=== PATIENT | male | born 1940 | race Caucasian/White ===

== ENCOUNTER 2022-03-19 09:27 | Emergency (ER) | payer MEDICARE, OTHER, SELFPAY ==
[2022-03-19] VITALS (30 sets, daily range): BP systolic 135–203; BP diastolic 50–139; PULSE 48–63; RESP 12–22; TEMP 37; O2SAT 93–99; BMI 31.3
--- NOTE | 2022-03-19 09:52 | CRLHL7_ITS ---
For Patients: As a result of the Cures Act, medical imaging exams and procedure reports are released immediately into your electronic medical record. You may view this report before your referring provider. If you have questions, please contact your health care provider. HISTORY: Chest pain. TECHNIQUE: Two views of the chest. COMPARISON: 04/27/2018. FINDINGS: Prior sternotomy. There is no acute lung infiltrate or acute pulmonary edema. No pneumothorax or pleural effusion. Heart size stable. Degenerative changes of the thoracic spine with ankylosis which may relate to diffuse idiopathic skeletal hyperostosis changes. IMPRESSION: No acute disease or significant change. Dictated by Juliano Walsh MD @ 03/19/2022 10:54:17 AM Dictated by: Juliano Walsh MD @ 03/19/2022 10:54:21 (Electronically Signed)
--- NOTE | 2022-03-19 09:59 | ED.GENADULT ---
HPI - General Adult General Chief complaint: Chest Pain Stated complaint: Chest pain/recent blood clots Time Seen by Provider: 03/19/22 09:33 History of Present Illness HPI narrative: 81-year-old male coming in today complaining of chest pain that has been going on for about a week. Chest pain comes and goes. Pain is located substernally and radiates sometimes into between his shoulder blades. Patient states that in 2001 he did have an AR and felt like this. He denies any other systemic symptoms such as fevers, chills, nausea or vomiting. He denies feeling dizzy, diaphoretic or lightheaded. He states that activity does make the discomfort worse however the pain also wakes him up frequently in the middle of the night. When it comes it lasts about 30 minutes. He does believe that rest usually makes it better. 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 He denies any shortness of breath. Patient does have a history of obesity, diabetes, hypertension and coronary artery disease with a CABG x2 vessels. He is on Eliquis daily as well. Related Data Home Medications Medication Instructions Recorded Confirmed apixaban 5 mg tablet (Eliquis) mg 03/19/22 atenolol 25 mg tablet mg 03/19/22 atorvastatin 40 mg tablet mg 03/19/22 ciclopirox 8 % topical solution TOPICAL 03/19/22 glipizide 5 mg tablet mg 03/19/22 insulin aspart U-100 100 unit/mL SUBCUT 03/19/22 (3 mL) subcutaneous pen (Novolog Flexpen U-100 Insulin aspart) insulin glargine 100 unit/mL (3 unit SUBCUT 03/19/22 mL) subcutaneous pen (Lantus Solostar U-100 Insulin) pantoprazole 40 mg tablet,delayed mg PO 03/19/22 release Allergies Allergy/AdvReac Type Severity Reaction Status Date / Time No Known Drug Allergies Allergy Verified 03/19/22 09:38 Review of Systems Status of ROS: Reports: 10 or more systems reviewed and unremarkable except as noted in History and below [facility] Medical History CAD (coronary artery disease) Cholecystectomy planned Diabetes mellitus type 1 Hypertension Surgical History Stented coronary artery Social History Smoking Status: Never smoker Do you use any of these nicotine containing products: None How often do you have a drink containing alcohol: monthly or less How often do you have six or more drinks on one occasion: Never AUDIT-C Alcohol total score: 1 Non-prescribed substance use: denies use Exam Narrative: Exam Narrative: Overweight, well-developed patient in no acute distress. Alert and oriented. Answers questions appropriately. Mood and affect are appropriate. Thoughts are goal oriented and rational. No tangential or magical thinking noted. Patient speaks in full sentences without needing to catch their breath. HEENT: Normocephalic atraumatic. Pupils are equally round reactive to light. Extraocular muscles are intact. Conjunctivae are moist without any icterus noted. Moist mucous membranes. Posterior pharynx is normal. Neck is soft without any lymphadenopathy or thyromegaly. No masses are appreciated. Cardiovascular: Heart is regular rate and rhythm S1 and S2 are present without any significant murmurs. Lungs: Clear to auscultation bilaterally no wheezes rhonchi or rales are appreciated. Patient takes deep breaths without any discomfort. Abdomen: Soft, protuberant and nontender nondistended with normal bowel sounds. No guarding or rebound. No masses or organomegaly appreciated. Extremities: Left lower extremity has trace edema, right lower extremity is without edema. The left lower extremity is where he had his previous DVT and he states that it has been swollen ever since. Skin: Well perfused without any obvious rashes. Const: Vital Signs, click to edit/add: Vital Signs - 24 hr 03/19/22 09:30 03/19/22 09:38 03/19/22 09:45 Temperature 98.6 F Pulse Rate [Right Pulse Oximeter] 62 60 Respiratory Rate 18 12 Blood Pressure [Ri ght Upper Arm] 203/87 H 203/87 H 183/91 H Pulse Oximetry 98 97 03/19/22 12:00 03/19/22 12:23 03/19/22 12:30 Temperature Pulse Rate [Right Pulse Oximeter] 53 L 60 63 Respiratory Rate 12 12 15 Blood Pressure [Ri ght Upper Arm] 185/81 H 189/89 H 154/81 H Pulse Oximetry 99 97 94 03/19/22 12:45 03/19/22 13:00 03/19/22 13:15 Temperature Pulse Rate [Right Pulse Oximeter] 50 L 50 L 48 L Respiratory Rate 12 18 15 Blood Pressure [Ri ght Upper Arm] 157/78 H 150/73 H 135/50 L Pulse Oximetry 96 97 96 03/19/22 13:30 Temperature Pulse Rate [Right Pulse Oximeter] 56 L Respiratory Rate 22 Blood Pressure [Ri ght Upper Arm] 145/83 H Pulse Oximetry 93 Course Vital Signs Vital signs: Initial Vital Signs Blood Pressure 203/87 H 03/19/22 09:30 Blood Pressure Mean 125 03/19/22 09:30 Blood Pressure Position Supine 03/19/22 09:30 Vital Signs Blood Pressure 203/87 H 03/19/22 09:30 Temperature 98.6 F 03/19/22 09:38 Pulse Rate 56 L 03/19/22 13:30 Respiratory Rate 22 03/19/22 13:30 Blood Pressure 145/83 H 03/19/22 13:30 Pulse Oximetry 93 03/19/22 13:30 Medical Decision Making [facility] Narrative Medical decision making narrative: 81-year-old male with a non ST elevation AR. Patient was stable while he was here he stated that every now and then he would feel a mild discomfort in his chest but nothing that was persistent. His 1st troponin was mildly elevated at 0.07 however his repeat troponin doubled to 0.14. Patient did receive oral aspirin. I spoke to Cardiology at [facility]: Dr. Meza, recommended we transfer the patient. We did give him a dose of sublingual nitro to bring his blood pressure down that worked quite well bringing his systolic BP to about 150. It is a 4-8 hour wait for a bed at [facility], patient will be monitored here in the meantime. Lab Data Lab results reviewed: Yes I reviewed the patient's lab results Labs: Lab Results 03/19/22 03/19/22 03/19/22 Range/Units 09:52 10:15 10:15 WBC 6.13 (4.50-11.00) K/uL RBC 4.43 (4.30-5.90) m/uL Hgb 13.1 L (13.5-17.5) gm/dL Hct 39.7 (37.0-53.0) % MCV 90 (80-100) fL MCH 30 (26-34) pg MCHC 33 (32-36) gm/dL RDW Coeff of Meenakshi 12.9 (11.5-15.5) % Plt Count 231 (140-440) K/uL Neut % (Auto) 62.6 (42.0-72.0) % Lymph % (Auto) 24.6 (20-44) % [place] % (Auto) 8.3 (0.0-11.0) % Eos % (Auto) 3.3 (0.0-7.0) % Baso % (Auto) 0.5 (0.0-3.0) % Neut # (Auto) 3.84 (1.7-7.0) K/uL Lymph # (Auto) 1.51 (0.90-2.90) K/uL [place] # (Auto) 0.50 (0.00-0.90) K/UL Eos # (Auto) 0.20 (0.00-0.50) K/uL Baso # (Auto) 0.03 (0.00-0.30) K/uL Abs Immat Gran (auto) 0.04 (0.00-0.30) K/uL Sodium 140 (135-149) mmol/L Potassium 4.3 (3.6-5.1) mmol/L Chloride 107 (96-114) mmol/L Carbon Dioxide 26 (20-32) mmol/L BUN 17 (7-30) mg/dL Creatinine 1.4 (0.5-1.5) mg/dL Estimated Creat Clear 38.03 Estimated GFR 50 ml/min Glucose 179 H (60-115) mg/dL Lactate (0.5-1.9) mmol/L Calcium 8.7 (8.4-10.6) mg/dL Total Bilirubin 1.0 (0.1-1.5) mg/dL Direct Bilirubin 0.3 (0.0-0.5) mg/dL AST 26 (12-35) U/L ALT 21 (4-50) U/L Alkaline Phosphatase 90 (40-150) U/L C-Reactive Protein 0.6 (0.5-1.0) mg/dL Total Protein 7.1 (6.0-8.3) g/dL Albumin 4.1 (3.3-5.0) g/dL Lipase 137 (23-300) U/L SARS-CoV-2 (PCR) (Negative) Influenza Type A (PCR) (Negative) Influenza Type B (PCR) (Negative) POC Troponin I 0.07 H (0.01-0.04) ng/ml 03/19/22 03/19/22 03/19/22 Range/Units 10:15 11:30 12:20 WBC (4.50-11.00) K/uL RBC (4.30-5.90) m/uL Hgb (13.5-17.5) gm/dL Hct (37.0-53.0) % MCV (80-100) fL MCH (26-34) pg MCHC (32-36) gm/dL RDW Coeff of Meenakshi (11.5-15.5) % Plt Count (140-440) K/uL Neut % (Auto) (42.0-72.0) % Lymph % (Auto) (20-44) % [place] % (Auto) (0.0-11.0) % Eos % (Auto) (0.0-7.0) % Baso % (Auto) (0.0-3.0) % Neut # (Auto) (1.7-7.0) K/uL Lymph # (Auto) (0.90-2.90) K/uL [place] # (Auto) (0.00-0.90) K/UL Eos # (Auto) (0.00-0.50) K/uL Baso # (Auto) (0.00-0.30) K/uL Abs Immat Gran (auto) (0.00-0.30) K/uL Sodium (135-149) mmol/L Potassium (3.6-5.1) mmol/L Chloride (96-114) mmol/L Carbon Dioxide (20-32) mmol/L BUN (7-30) mg/dL Creatinine (0.5-1.5) mg/dL Estimated Creat Clear Estimated GFR ml/min Glucose (60-115) mg/dL Lactate 1.6 (0.5-1.9) mmol/L Calcium (8.4-10.6) mg/dL Total Bilirubin (0.1-1.5) mg/dL Direct Bilirubin (0.0-0.5) mg/dL AST (12-35) U/L ALT (4-50) U/L Alkaline Phosphatase (40-150) U/L C-Reactive Protein (0.5-1.0) mg/dL Total Protein (6.0-8.3) g/dL Albumin (3.3-5.0) g/dL Lipase (23-300) U/L SARS-CoV-2 (PCR) Negative SARS-CoV-2 (Negative) Influenza Type A (PCR) Negative PCR FLU A (Negative) Influenza Type B (PCR) Negative PCR FLU B (Negative) POC Troponin I 0.14 H (0.01-0.04) ng/ml Imaging Data Chest x-ray: My impression: No acute pathology Radiologist's impression: FINDINGS: Prior sternotomy. There is no acute lung infiltrate or acute pulmonary edema. No pneumothorax or pleural effusion. Heart size stable. Degenerative changes of the thoracic spine with ankylosis which may relate to diffuse idiopathic skeletal hyperostosis changes. IMPRESSION: No acute disease or significant change. ECG Data Attestation: I personally reviewed and interpreted this ECG as follows: (Normal sinus rhythm with a right bundle branch block, repeat EKG unchanged.) Critical Care Time Critical Care Time Total Critical Care Time in Minutes: 120 Discharge Plan Discharge Clinical Impression: Non-ST elevated myocardial infarction Patient Disposition: Xfer [facility] Discharge Location: [facility] Condition: Stable Prescriptions: No Action atorvastatin 40 mg tablet 0RF atenolol 25 mg tablet 0RF pantoprazole 40 mg tablet,delayed release (DR/EC) PO 0RF glipizide 5 mg tablet 0RF ciclopirox 8 % solution TOPICAL 0RF insulin aspart U-100 [Novolog Flexpen U-100 Insulin] 100 unit/mL (3 mL) insulin pen SUBCUT 0RF insulin glargine [Lantus Solostar U-100 Insulin] 100 unit/mL (3 mL) insulin pen SUBCUT 0RF Eliquis 5 mg tablet 0RF Stand Alone Forms: [facility] Info Instructions
[2022-03-19 10:29] LABS: Lactate* 1.6 mmol/L (0.5-1.9)
[2022-03-19 10:38] LABS: Basophils Absolute Auto 0.03 K/uL (0.00-0.30); Basophils Percent Auto 0.5 % (0.0-3.0); Eosinophils Percent Auto 3.3 % (0.0-7.0); Hematocrit 39.7 % (37.0-53.0); Hemoglobin* 13.1 gm/dL (13.5-17.5); Immature Granulocytes Abs Auto 0.04 K/uL (0.00-0.30); Lymphocytes Absolute Auto 1.51 K/uL (0.90-2.90); Lymphocytes Percent Auto 24.6 % (20-44); Mean Corpuscular HGB Conc 33 gm/dL (32-36); Mean Corpuscular Hemoglobin 30 pg (26-34); Mean Corpuscular Volume 90 fL (80-100); Monocytes Percent Auto 8.3 % (0.0-11.0); Neutrophils Absolute Auto 3.84 K/uL (1.7-7.0); Neutrophils Percent Auto 62.6 % (42.0-72.0); Platelet Count* 231 K/uL (140-440); RDW Coefficient of Variation % 12.9 % (11.5-15.5); Red Blood Count 4.43 m/uL (4.30-5.90); White Blood Count* 6.13 K/uL (4.50-11.00)
[2022-03-19 10:43] LABS: Slide Review Reflex No
[2022-03-19 10:48] LABS: Albumin* 4.1 g/dL (3.3-5.0); Chloride* 107 mmol/L (96-114)
[2022-03-19 10:49] LABS: Potassium* 4.3 mmol/L (3.6-5.1); Sodium* 140 mmol/L (135-149)
[2022-03-19 10:51] LABS: Creatinine* 1.4 mg/dL (0.5-1.5); Est. Creatinine Clearance* 38.03; Estimated Glomerular Filt Rate 50 ml/min
[2022-03-19 10:52] LABS: Alanine Aminotransferase* 21 U/L (4-50); Alkaline Phosphatase* 90 U/L (40-150); Bilirubin Direct* 0.3 mg/dL (0.0-0.5); Blood Urea Nitrogen* 17 mg/dL (7-30); Calcium* 8.7 mg/dL (8.4-10.6); Carbon Dioxide* 26 mmol/L (20-32); Glucose* 179 mg/dL (60-115); Lipase* 137 U/L (23-300); Total Protein* 7.1 g/dL (6.0-8.3)
[2022-03-19 10:55] LABS: C Reactive Protein* 0.6 mg/dL (0.5-1.0)
[2022-03-19 11:14] LABS: Troponin, Point-of-Care* 0.07 ng/ml (0.01-0.04)
[2022-03-19 11:27] LABS: Aspartate Amino Transferase* 26 U/L (12-35)
[2022-03-19 11:59] LABS: Troponin, Point-of-Care* 0.14 ng/ml (0.01-0.04)
[2022-03-19] MEDS: ASPIRIN 81 MG TAB.CHEW 324 MG PO (12:17)
[2022-03-19] MEDS: NITROGLYCERIN 0.4 MG TAB.SUBL SUBLINGUAL ×2 (12:20→16:28)
[2022-03-19 13:07] LABS: PCR FLU A Negative PCR FLU A (Negative); PCR FLU B Negative PCR FLU B (Negative)
[2022-03-19 13:15] LABS: SARS PCR* Negative SARS-CoV-2 (Negative)
[2022-03-19 18:08] LABS: Glucose, Point-of-Care* 90 mg/dl (60-115)
--- NOTE | 2022-03-19 18:08 | ED.NURSE ---
Call to [facility] to verify pt's NPO status. Per [facility], pt may eat. BS 90. Pt brought food/drink.
--- NOTE | 2022-03-19 18:09 | ED.NURSE ---
Addendum entered by Philly Wilson RN 03/19/22 18:11: Clarification: Time 1724. Original Note: Call from [place]. Pt to be transported via EMS to [place] [facility]. Accepting MD: Dr. Morales. Call to dispatch. Per dispatch, ETA one hour.
--- NOTE | 2022-03-19 19:44 | ED.NURSE ---
Pt leaves ER via EMS en route to [place] with belongings in bag (shirt, black bag, and book). [place] notified that pt en route.
--- NOTE | 2022-03-19 19:45 | ED.NURSE ---
Handoff report to FAVIOLA Villalba.
== END 2022-03-19 19:45 | disposition short-term general hospital (02) ==
PROVIDERS: Emergency Provider Family Medicine; PCP Family Medicine
DX: I21.4 Non-ST elevation (NSTEMI) myocardial infarction (principal)
CPT/HCPCS: 36415; 71046; 80048; 80076; 82947; 83605; 83690; 84484; 85025; 86140; 87502; 87635; 93005; 99285; 99291; 99292; A9270

== ENCOUNTER 2022-03-19 19:39 | Outpatient (CLI) | payer MEDICARE, OTHER, SELFPAY | END 2022-03-19 19:40 | disposition home or self-care (01) | LOC: AMB 03-25 23:45 | PROVIDERS: PCP Family Medicine; Visit Provider Family Medicine | DX: I21.4 Non-ST elevation (NSTEMI) myocardial infarction (principal) | CPT/HCPCS: A0425; A0427 ==

== ENCOUNTER 2024-10-29 09:30 | Outpatient (RCR) | payer MEDICARE, OTHER, SELFPAY | END 2024-10-29 10:07 | disposition home or self-care (01) | PROVIDERS: PCP Family Medicine; Visit Provider Family Medicine | DX: M25.552 Pain in left hip (principal); G89.29 Other chronic pain; M62.81 Muscle weakness (generalized); Z74.09 Other reduced mobility; R26.81 Unsteadiness on feet; Z51.89 Encounter for other specified aftercare | CPT/HCPCS: 97110; 97161 ==